=== PATIENT | male | born 1935 | race Caucasian/White ===

== ENCOUNTER 2019-11-12 10:02 | Inpatient (IN) | payer MEDICARE, MEDICAID ==
[~2019-11-12] VITALS: Ht 165.1 cm; Wt 102.3 kg
--- NOTE | ~2019-11-12 | OP ---
[address] [address] OPERATIVE REPORT Name: MITESH ASHBY Room: [address] IN .R.#: [id number] Admission: 11/12/19 Attend Phys: Bassam Schmid, Discharge: Date of : 37 Report #: [id number] THIS REPORT FOR: //name// cc: Praneeth Perez Ryan D. DO ~ CC: Praneeth Schmid DICTATED BY: Bc Bishop DO DATE OF SERVICE: 11/12/2019 PREOPERATIVE DIAGNOSIS: Right basicervical hip fracture. POSTOPERATIVE DIAGNOSIS: Right basicervical hip fracture. PROCEDURE: 1. Right cephalomedullary nailing of right hip fracture. 2. Physician-guided fluoroscopy, less than 1 hour. SURGEON: Shaila Gomez DO RADIO JOURNALIST: Bc Bishop DO; Hermes Deshpande DO ANESTHESIA: General. FLUIDS: Crystalloid. ESTIMATED BLOOD LOSS: 100 mL. DRAINS: None. SPECIMENS: None. COMPLICATIONS: None. CONDITION: Stable. DISPOSITION: PACU to [facility]. PREOPERATIVE ANTIBIOTICS: 2 grams of Ancef. INDICATIONS FOR PROCEDURE: The patient is an 84-year-old male who suffered a fall at home this morning, presented to the Emergency Department where imaging revealed a right basicervical femoral neck fracture. The patient was seen and nonoperative versus operative treatment options were discussed as well as risks, [address] [place] [address] OPERATIVE REPORT Name: MITESH ASHBY Oliva Room: [address] IN [facility].#: [id number] Admission: 11/12/19 Attend Phys: Bassam Schmid, Discharge: Date of : 36 Report #: [id number] complications and alternatives. The patient agreed to proceed with operative fixation after our recommendation. DESCRIPTION OF PROCEDURE: The patient was seen in preoperative area and the procedure and procedure site were verified and confirmed correct. The patient was transferred to the operating suite and placed in the supine position on operating table. He was given the benefit of general anesthesia. C-arm guidance was then used to perform closed reduction of the right hip fracture. Once adequate reduction was obtained, the right lower extremity was sterilely prepped and draped in the usual sterile fashion. Timeout was performed verifying the correct procedure, site, and patient identity, all parties agreed. Using C-arm guidance, appropriate starting point was found and incision was made. Sharp dissection was carried down through the IT band to the greater trochanter. A guidewire was placed in appropriate starting position and advanced to the lesser trochanter. Opening reamer was then passed down to the level of lesser trochanter. A 10 x 170 mm x 125 degree Krista gamma nail was then placed into the femur. Once it was in appropriate position, incision was made for placement of the lag screw. Dissection was carried down to bone with scalpel. A drill was then passed to the appropriate length for the lag screw. Then, reamer for the lag screw was passed followed by an appropriately sized lag screw, all confirmed to be in correct position with C-arm. Attention was then turned to the distal interlock screw, placed in each pedicle. Incision was made, sharp dissection was carried down to the level of the femur. A drill was used to drill bicortically through the femur. Measuring guide was used and then an appropriately sized distal interlock screw was placed. Final images were taken confirming the implant to be in appropriate position. Incisions were irrigated with sterile saline. IT band was closed with 0 Vicryl. Subcutaneous tissue was closed with 2-0 interrupted Vicryls. Skin was closed with kyung. Mepilex dressing was placed. The patient was transferred off the operating table and awoken from anesthesia without complication. He was transferred to PACU area for recovery. By: 1628 [id number] Gomez DO /jone
--- NOTE | ~2019-11-12 | EMS ---
[facility] [address] [place] [address] EMS Patient Care Report Name: MITESH ASHBY Room: [place] [address] ADM [place] ..#: [id number] Admission: 11/12/19 Attend Phys: Bassam Schmid, Discharge: Date of : 36 Report #: [id number] THIS REPORT FOR: //name// Report Transmitted: 11/12/2019 10:35 EMS Care Summary [facility] [place] Incident [id number] @ 11/12/2019 09:25 Incident Location [address] [place], [place] [id number] Patient MITESH ASHBY Male, 84 Years 1935 Patient Address [address] [place] [address] Patient History Hypertension (HTN), Patient Allergies No known allergies, Chief Complaint Pain-extremity lower Disposition Transported No Lights/[place] Dispatch Reason Falls Transported To [facility] Narrative Dispatched to address noted for a fall with a hip fracture. [facility] en route and on scene at time noted. Staff met us at the door and stated that the patient fell to the floor this morning. Patient had hip pain and they diagnosed a non displaced hip fracture on his right side with an x-ray today. Patient was in his recliner and stated pain with movement. Patient had no other injuries noted. Patient was able to transfer to stretcher and then was buckled in. [facility] [address] [place] [address] EMS Patient Care Report Name: MITESH ASHBY Room: [address] IN [facility]#: [id number] Admission: 11/12/19 Attend Phys: Bassam Schmid, Discharge: Date of : 36 Report #: [id number] Patient wanted to be transported to [facility] for care. Staff provided paperwork. Once in ambulance, vitals where taken. IV was attempted with no success and patient was stating pain with movement and palpation to right hip. Patient stated that he fell this morning while collecting dirty laundry off the floor. Patient denied a strike to the head, loss of consciousness or any blood thinner use. While en route, no major change was noted. Vitals taken again and radio report given. Arrived and took patient to room. Patient was moved to bed and RN was given verbal report. RN signed for patient and patient signed for self. END REPORT EMT-P Gurpreet Mcbride Initial Vitals @09:32Pain: 10/02, @09:50Pain: 10/02, @:50 @09:48P: 88,R: 14,BP: 153/75,Revised Trauma: 8, @09:55P: 90,R: 14,BP: 160/70,Revised Trauma: 8, @09:48GCS: 15, @09:55GCS: 15, @10:10 Assessments @09:32MENTAL:SKIN:HEENT:LUNG SOUNDS:ABDOMEN:PELVIS//GI:EXTREMITIES:PULSE:NEURO: Impression Pelvic and Perineal Pain Procedures @09:48 cc () Site: Hand-LeftResponse: UnchangedFailed@09:503-Lead ECGResponse: UnchangedSucceeded Timeline 09:25,Call Received 09:25,Dispatch Notified 09:,Psap Call 09:25,Dispatched 09:25,En Route 09:30,On Scene 09:32,At Patient 09:32,BP: / M,PULSE: ,RR: R,SPO2: Ox,ETCO2: ,BG: ,PAIN: 8,GCS: , 09:48, cc Site: Hand-Left,Response: UnchangedFailed, 09:48,BP: 153/75 M,PULSE: 88,RR: 14 R,SPO2: Ox,ETCO2: ,BG: ,PAIN: ,GCS: , 09:48,BP: / M,PULSE: ,RR: R,SPO2: Ox,ETCO2: ,BG: ,PAIN: ,GCS: 15, 09:50,Depart Scene 09:50,3-Lead ECG,Response: UnchangedSucceeded, 09:50,BP: / M,PULSE: ,RR: R,SPO2: Ox,ETCO2: ,BG: ,PAIN: 8,GCS: , [place] [address] EMS Patient Care Report Name: MITESH ASHBY Room: [place] [address] ADM [place] [facility]#: [id number] Admission: 11/12/19 Attend Phys: Bassam Schmid, Discharge: Date of : 36 Report #: [id number] 09:50,BP: / M,PULSE: ,RR: R,SPO2: Ox,ETCO2: ,BG: ,PAIN: ,GCS: , 09:55,BP: 160/70 M,PULSE: 90,RR: 14 R,SPO2: Ox,ETCO2: ,BG: ,PAIN: ,GCS: , 09:55,BP: / M,PULSE: ,RR: R,SPO2: Ox,ETCO2: ,BG: ,PAIN: ,GCS: 15, 09:59,At Destination 10:10,BP: / M,PULSE: ,RR: R,SPO2: Ox,ETCO2: ,BG: ,PAIN: ,GCS: , 10:13,Call Closed Disclaimer v1.1 Copyright 2020 [employer] This EMS Care Summary contains data elements from the applicable legal record (which may be displayed differently). It is designed to provide pertinent information for the following purposes: continuity of care, clinical quality, and state data reporting. The complete legal record is available to ED staff and administrators of the receiving hospital in [employer]'s Patient Tracker. All data is provided "as is."
[2019-11-12] MEDS ORDERED: MAPAP500 MG PO (10:08)
[2019-11-12] MEDS ORDERED: ASPERCREME1 EACH TOP (10:08)
[2019-11-12] MEDS ORDERED: PAIN RELIEF650 MG PO (10:08)
[2019-11-12] MEDS ORDERED: LIPITOR40 MG PO (10:09)
[2019-11-12] MEDS ORDERED: ZYRTEC 10 MG TA10 MG PO (10:09)
[2019-11-12] MEDS ORDERED: VITAMIN D3100 MCG PO (10:09)
[2019-11-12] MEDS ORDERED: FLOMAX0.4 MG PO (10:10)
[2019-11-12] MEDS ORDERED: FISH OIL 1,0001 EAC9 PO (10:10)
[2019-11-12] MEDS ORDERED: COLACE100 MG PO (10:10)
[2019-11-12] MEDS ORDERED: FERROUS SULFAT325 MG PO (10:10)
[2019-11-12] MEDS ORDERED: FUROSEMIDE 40 M40 MG PO (10:11)
[2019-11-12] MEDS ORDERED: FLONASE 0.05%50 MCG NARES (10:11)
[2019-11-12] MEDS ORDERED: NEURONTIN800 MG PO (10:11)
[2019-11-12] MEDS ORDERED: MAALOX MAXIMUM355 ML PO (10:12)
[2019-11-12] MEDS ORDERED: HUMALOG100 UNIT/1 SUBQ (10:12)
[2019-11-12] MEDS ORDERED: LANTUS SUBQ (10:12)
[2019-11-12] MEDS ORDERED: TOPROL XL50 MG (10:13)
[2019-11-12] MEDS ORDERED: METOLAZONE 2.52.5 M1 PO (10:13)
[2019-11-12] MEDS ORDERED: MIRALAX119 GM PO (10:13)
[2019-11-12] MEDS ORDERED: METFORMIN HCL500 M3 PO (10:13)
[2019-11-12 10:14] VITALS: BP 152/77
[2019-11-12] MEDS ORDERED: OMEPRAZOLE 20 M20 M1 PO (10:14)
[2019-11-12] MEDS ORDERED: NYSTATIN1000000 UN TOP (10:14)
[2019-11-12] MEDS ORDERED: ZOFRAN4 MG PO (10:15)
[2019-11-12] MEDS ORDERED: VENTOLIN HFA 1818 GM INH (10:15)
[2019-11-12] MEDS ORDERED: TRAMADOL 50 MG50 MG PO (10:15)
[2019-11-12] MEDS ORDERED: PROMETHEGAN25 MG RECTAL (10:15)
[2019-11-12 10:28] LABS: ABSOLUTE EOSINOPHILS 0.1 thou/uL (0.0-0.7); ABSOLUTE LYMPHOCYTES 2.9 thou/uL (0.8-5.3); ABSOLUTE NEUTROPHILS 10.2 thou/uL (1.6-8.1); BASOPHILS 0.2 %; EOSINOPHILS 0.8 %; HEMATOCRIT 40.9 % (42.0-52.0); HEMOGLOBIN 13.9 gm/dL (14.0-18.0); LYMPHOCYTES 20.5 %; MCH 30.9 pg (26.0-34.0); MCHC 33.9 g/dL (28.0-37.0); MCV 91.1 fL (80.0-100.0); MONOCYTES 7.2 %; MPV 9.4 fl. (7.2-11.1); NUCLEATED RBCS 0 /100WBC; PLATELET COUNT* 197 thou/uL (150-400); POLYS 71.3 %; RBC 4.49 mil/uL (4.50-6.00); RDW-CV 17.6 % (10.5-14.5); WBC 14.3 thou/uL (4.0-11.0)
[2019-11-12 10:39] LABS: CALCIUM 9.1 mg/dL (8.5-10.1); CREATININE 1.5 mg/dL (0.6-1.3); POTASSIUM 3.7 mmol/L (3.5-5.1)
[2019-11-12 10:43] LABS: URINE BILIRUBIN NEGATIVE (Negative); URINE BLOOD 2+ (Negative); URINE CLARITY SL CLOUDY; URINE COLOR STRAW; URINE GLUCOSE-RANDOM NEGATIVE (Negative); URINE KETONES NEGATIVE (Negative); URINE LEUKOCYTES-REFLEX 1+ (Negative); URINE PROTEIN NEGATIVE (Negative); URINE UROBILINOGEN 0.2 E.U./dl (0.2-1.0)
[2019-11-12 10:44] LABS: ALBUMIN 3.4 g/dL (3.4-5.0); INR 1.1; PROTIME 11.4 Seconds (9.20-11.50); TOTAL BILIRUBIN 0.4 mg/dL (<0.1-1.0); TOTAL PROTEIN 8.3 g/dL (6.4-8.2)
[2019-11-12 10:44] LABS: URINE NITRITE-REFLEX POSITIVE (Negative)
[2019-11-12 10:49] LABS: SQUAMOUS 0-3 Few /LPF (0-3); URINE WBC-REFLEX >25 Many /HPF (0-5); WBC CLUMPS Few (None Seen)
[2019-11-12 10:50] LABS: BACTERIA-REFLEX >30 Many /HPF (None Seen); CASTS None Seen /LPF (None Seen); CRYSTALS None Seen /LPF (None Seen); MUCUS None Seen strn/LPF (None Seen); URINE RBC 0-2 Rare /HPF (0-2)
[2019-11-12 14:36] VITALS: BP 127/38
[2019-11-12 18:15] VITALS: BP 123/44
--- NOTE | 2019-11-12 18:36 | NUR ---
PT NOTED TO HAVE ARRIVED TO ROOM VIA BED AT 1800, POST ORIF OR RIGHT HIP; REPORT RECEIVED AT BED SIDE- ENGINE LATHE TENDER PLACED ORDERED, TRACING SR/ST- IV NOTED TO LEFT FA INTACT AND SL- VS NOTED AT 97.6 20 123/44 100 92-94% ON 4L, CAP NO IN PLACE ORDERED- DRESSING NOTED TO RIGHT HIP WITH PIN POINT DRAINAGE NOTED, ICE IN PLACE FOR COMFORT- PT NOTED TO BE A&O X3, BUT DROWSY- FRANCOIS IN PLACE D/D CLEAR YELLOW URINE- PT SET ARRANGED IN BED, CALL LIGHT AND PERSONAL BELONGINGS WITH IN REACH- REPORT TO BE GIVEN TO NIGHT NURSE TO CONTINUE CARES- ALL NEEDS MET AT THIS TIME-WCTM
[2019-11-12 20:00] VITALS: BP 151/61
[2019-11-13] VITALS: BP 130/50
[2019-11-13 04:00] VITALS: BP 139/59
[2019-11-13 05:25] LABS: HEMATOCRIT 33.7 % (42.0-52.0); MCH 31.5 pg (26.0-34.0); MCHC 34.3 g/dL (28.0-37.0); RBC 3.66 mil/uL (4.50-6.00); WBC 10.9 thou/uL (4.0-11.0)
[2019-11-13 05:38] LABS: ALBUMIN 2.9 g/dL (3.4-5.0); CALCIUM 8.4 mg/dL (8.5-10.1); CREATININE 1.6 mg/dL (0.6-1.3); MAGNESIUM 1.7 mg/dL (1.8-2.4); POTASSIUM 4.3 mmol/L (3.5-5.1); TOTAL BILIRUBIN 0.3 mg/dL (<0.1-1.0); TOTAL PROTEIN 7.4 g/dL (6.4-8.2)
[2019-11-13 05:40] LABS: HEMOGLOBIN 11.5 gm/dL (14.0-18.0)
[2019-11-13 07:42] VITALS: BP 127/58
--- NOTE | 2019-11-13 09:31 | NUR ---
ASSUMED CARE OF PT THIS AM AROUND 0715- SERVICING REP IN PLACE ORDERED, TRACING SR WITH 1ST DEGREE- UPON ASSESSMENT PT NOTED TO BE RESTING IN BED- PT A&O X4- FRANCOIS IN PLACE D/D YELLOW URINE- Q2 HOUR TURNS IN PLACE INDICATED- LCTA/DIMINISHED IN BASES- VSS, O2 SAT 94% ON 3L VIA NC THIS AM, CAPNO IN PLACE ORDERED- ABD SOFT/ROUND/OBESE, BS X4 QUADS- LAST BM REPORTED X4 DAYS AGO, SCHEDULED MIRALAX GIVEN THIS AM ORDERED- IV NOTED TO LEFT FA INTACT, IV ABT GIVEN THIS AM PRESCRIBED- SET UP ASSIST REQUIRED WITH MEALS, GOOD PO INTAKE NOTED THIS AM- BS MONITORED ORDERED, INSULIN PRESCRIBED- RIGHT HIP DRESSING NOTED WITH SCANT DRAINGE, INTACT- SCD'S IN PLACE INDICATED- PRN OXY THIS AM AT 0902 R/T C/O RIGHT HIP PAIN- CALL LIGHT AND PERSONAL BELONGINGS WITH IN REACH- HOURLY ROUNDS IN PLACE R/T SAFETY/NEEDS- ALL NEEDS MET AT THIS TIME-WCTM
--- NOTE | 2019-11-13 10:58 | EKG ---
[place] [address] ELECTROCARDIOGRAM REPORT Name: MITESH ASHBY Room: [address] IN [facility].#: [id number] Admission: 11/12/19 Attend Phys: Bassam Rdz Discharge: Date of : 37 Date of Service: 11/12/19 1040 Report #: [id number] THIS REPORT FOR: //name// [facility] ED Test Date: 2019-11-12 Test Time: 10:40:13 Pat Name: MITESH ASHBY Department: Room: [facility] Gender: M Lacing Cutter: TURNER : 1935 Requested By: Geraldo Johnson Order Number: [id number] MD: Juan Gusman Measurements Intervals [place] Rate: 83 P: 51 OR: 166 QRS: 49 QRSD: 94 T: 50 QT: 382 QTc: 449 Interpretive Statements Sinus rhythm No previous ECG available for comparison Electronically Signed On 11-13-2019 10:58:13 CDT by Juan Gusman [email or web address] <ELECTRONICALLY SIGNED> By: Juan Gusman MD, [facility] 11/13/19 1058 1040 1040 Juan Gusman MD, FACC /EPI
[2019-11-13 12:31] VITALS: BP 153/78
[2019-11-13 16:16] VITALS: BP 123/43
[2019-11-13 20:00] VITALS: BP 141/60
[2019-11-14] VITALS: BP 129/41
[2019-11-14 04:00] VITALS: BP 110/47
[2019-11-14 05:02] LABS: HEMATOCRIT 28.4 % (42.0-52.0); MCH 32.3 pg (26.0-34.0); MCHC 35.2 g/dL (28.0-37.0); MCV 91.8 fL (80.0-100.0); MPV 9.8 fl. (7.2-11.1); RBC 3.09 mil/uL (4.50-6.00); RDW-CV 17.1 % (10.5-14.5); WBC 10.3 thou/uL (4.0-11.0)
[2019-11-14 05:11] LABS: CALCIUM 8.6 mg/dL (8.5-10.1); CREATININE 1.8 mg/dL (0.6-1.3); POTASSIUM 3.7 mmol/L (3.5-5.1)
[2019-11-14 07:43] VITALS: BP 117/40
--- NOTE | 2019-11-14 09:09 | NUR ---
ASSUMED CARE OF PT THIS AM AROUND 07- LEGAL PROJECT MANAGER IN PLACE ORDERED, TRACING SR- UPON ASSESSMENT PT NOTED TO BE RESTING IN BED- PT A&O X4- CONT OF BOWEL, FRANCOIS IN PLACE D/D CLEAR YELLOW URINE- Q2 HOUR TURNS IN PLACE INDICATED- RUL WHEEZING NOTED WITH WET NON-PRODUCTIVE COUGH R/T POOR EFFORT- VSS, O2 SAT 94% ON 3L VIA NC- ABD SOFT/OBESE/NON-TENDER, BS X4 QUADS- IV NOTED TO RIGHT FA INTACT AND SL, IV ABT GIVEN THIS AM WITH BREAKFAST- SET UP ASSIST REQUIRED WITH MEALS, GOOD PO INTAKE NOTED- BS MONITORED ORDERED WITH INSULIN GIVEN PRESCRIBED- RIGHT HIP DRESSING INTACT WITH NO NEW DRAINGE NOTED, ICE PACK TO SIGHT FOR COMFORT- ABD PILLOW IN PLACE INDICATED- CALL LIGHT AND PERSONAL BELONGINGS WITH IN REACH- HOURLY ROUNDS IN PLACE R/T SAFETY/NEEDS- ALL NEEDS MET AT THIS TIME-WCTM
[2019-11-14] MEDS ORDERED: OXYCODONE HCL 55 MG PO (09:51)
[2019-11-14] MEDS ORDERED: ELIQUIS5 MG PO (09:51)
[2019-11-14] MEDS ORDERED: MAPAP500 MG PO (09:51)
[2019-11-14] MEDS ORDERED: KEFLEX500 M1 PO (09:51)
--- NOTE | 2019-11-14 13:38 | NUR ---
CM SPOKE TO THE PT TO DISCUSS HIS HOME SITUATION, DISCHARGE PLANNING, AND TO INFORM OF THE ROLE OF CM. PT INFORMS THAT HE RESIDES AT [facility] AND NORMALLY 'GETS AROUND OK'. PT USES A WALKER OR CANE FOR MOBILITY. CM SPOKE TO YOUNG WITH [facility] ADMISSIONS AND SAADIA CONFIRMS THAT THE PT RESIDES AT IN LTC, AND THAT THE FACILITY IS ABLE TO ACCEPT THE PT TO THE SKILLED UNIT AT D/C IF NEEDED. CM TO FAX SNF REFERRAL WHEN PT/OT NOTES ARE AVAILABLE. CM ATTEMPTED TO CONTACT PT'S SON SINA TO DISCUSS DISCHARGE PLANNING. NO ANSWER. CM LEFT VOICEMAIL FOR SINA TO RETURN CALL TO CM. CM WILL REMAIN AVAILABLE TO ASSIST AND FOLLOW NEEDED. [facility] PHONE: [phone] FAX: [phone]
[2019-11-14 20:00] VITALS: BP 137/51
[2019-11-15 00:30] VITALS: BP 138/38
[2019-11-15 04:30] VITALS: BP 157/50
[2019-11-15 08:00] VITALS: BP 106/55
[2019-11-15 13:40] VITALS: BP 154/45
[2019-11-15 15:59] VITALS: BP 121/35
--- NOTE | 2019-11-15 19:00 | NUR ---
PATIENT RESTING IN BED. UP WITH ASSIST X2 MAX. FORGERTFUL AT TIMES.
[2019-11-15 20:00] VITALS: BP 135/56
[2019-11-16] VITALS (7 sets, daily range): BP systolic 100–147; BP diastolic 30–59
--- NOTE | 2019-11-16 12:05 | NUR ---
ASSUMED CARE OF PATIENT THIS AM AT 0730. PATIENT IS ALERT AND ORIENTED X 4. HE C/O SEVERE PAIN TO HIS RIGHT HIP. TELE SHOWS NSR. PATIENT REPOSITIONED AND MEDICATED FOR PAIN. PATIENT TAKEN TO RADIOLOGY PER BED FOR KUB AND RETURNED. PT IN TO SEE PATIENT AND THEY PLACED HIM UP IN THE CHAIR. PATIENT C/O PAIN RETURNING WITH ACTIVITY. PATIENT REMEDICATED X 1. O2 TITRATED BACK DOWN TO 3 LITERS. SURGICAL SITE DRESSING IS INTACT. WILL CONTINUE TO MONITOR.
[2019-11-16 14:23] LABS: ABSOLUTE EOSINOPHILS 0.2 thou/uL (0.0-0.7); ABSOLUTE LYMPHOCYTES 2.2 thou/uL (0.8-5.3); ABSOLUTE MONOCYTES 0.6 thou/uL (0.0-1.2); BASOPHILS 0.3 %; EOSINOPHILS 1.6 %; HEMATOCRIT 32.2 % (42.0-52.0); LYMPHOCYTES 21.8 %; MCH 31.1 pg (26.0-34.0); MCV 91.5 fL (80.0-100.0); MONOCYTES 6.2 %; MPV 10.3 fl. (7.2-11.1); NUCLEATED RBCS 0 /100WBC; PLATELET COUNT* 212 thou/uL (150-400); POLYS 70.1 %; RBC 3.52 mil/uL (4.50-6.00); RDW-CV 16.5 % (10.5-14.5)
[2019-11-17 00:22] VITALS: BP 126/39
[2019-11-17 04:42] VITALS: BP 146/49
--- NOTE | 2019-11-17 07:17 | NUR ---
APPROX 0130 PT DISCONTINUE FRANCOIS, NEW FRANCOIS PLACE. NO ISSUES WITH FRANCOIS SINCE REINSERTION.
[2019-11-17 08:15] VITALS: BP 138/57
[2019-11-17 11:29] VITALS: BP 163/50
[2019-11-17 13:08] LABS: HEMATOCRIT 30.1 % (42.0-52.0); HEMOGLOBIN 10.5 gm/dL (14.0-18.0); MCH 31.4 pg (26.0-34.0); MCHC 34.7 g/dL (28.0-37.0); MCV 90.5 fL (80.0-100.0); MPV 9.6 fl. (7.2-11.1); RBC 3.33 mil/uL (4.50-6.00); RDW-CV 16.6 % (10.5-14.5); WBC 9.2 thou/uL (4.0-11.0)
[2019-11-17 13:15] LABS: CALCIUM 9.1 mg/dL (8.5-10.1); CREATININE 1.2 mg/dL (0.6-1.3); POTASSIUM 3.9 mmol/L (3.5-5.1)
--- NOTE | 2019-11-17 16:13 | NUR ---
CM INFORMED THAT PT READY TO D/C TODAY BACK TO [facility] SKILLED LEVEL OF CARE. CM SPOKE TO YOUNG WITH ADMISSIONS AT TO INFORM OF THE PT'S RETURN AND FAXED PT'S CLINICAL INFO AND D/C ORDERS. YOUNG ARRANGED [facility] FOR 1530. CM INFORMED RN IN-CHARGE OF THE PT OF THE PT'S TIME OF TX AND WHERE TO CALL REPORT. RN IN AGREEMENT. CM WILL REMAIN AVAILABLE TO ASSIST AND FOLLOW NEEDED. [facility] PHONE: [phone] FAX: [phone]
--- NOTE | 2019-11-17 20:03 | NUR ---
AT 1341 REPORT CALLED TO [facility] ALMAR[facility]. SPOKE WITH FREDRICK CESAR. REVIEWED PATIENT REASON FOR ADMISSION, AM NURSING ASSESSMENT, VITAL SIGNS, APPREARANCE OF SURGICAL SIGHT RIGHT HIP. THE SITE HAS INTACT STAPLE LINE, NO DRAINAGE AND CLEAN ISLAND DRESSINGS X 2 APPLIED. DISCUSSED NEED FOR FOLLOW UP APPOINTMENT WITH ORTHOPEDIC SURGEON DR AMELIA MCKEON BY November. THIS INFORMATION WAS PROVIDED TO ME BY DR MCKEON'S OFFICE STAFF (YAZMIN). FRANCOIS CATHETER WAS LEFT INTACT BASED ON VERBAL ORDER FROM DR MARTIN. i ALSO REVIEWED BLOOD SUGAR RANGE THIS SHIFT WHICH HAS BEEN [phone] WITH USE OF SCHEDULED AND SLIDING SCALE INSULIN. AT 1625 WHEELCHAIR VAN ARRIVED. PT REQUIRED 3 PERSON HEAVY ASSIST PLUS USE OF GAIT BELT TO TRANSFER TO . TRANSPORTATION STAFF PROVIDED WITH PACKET OF PAPERWORK FOR SNF FACILITY. AT TIME OF DISCHARGE PT REMAINED ALERT, ORIENTED AND COOPERATIVE. NO C/O PAIN OR DISTRESS. IV WAS DISCONTINUED PRIOR TO DISCHARGE.
== END 2019-11-17 16:23 | DRG 480 ==
LOC: M.ERS 10:02 → M.SUR 10:02 → M.ERS 11:20 → M.TBA-ER 11:20 → M.2W 15:38 → M.TBA-ER 15:38 → M.2W 18:12
PROVIDERS: Emergency Medicine Emergency Medical Services; Internal Medicine; ADMIT Family Medicine; ATTEND Family Medicine
PROC: 0QS604Z Reposition Right Upper Femur with Internal Fixation Device, Open Approach (ICD-10-PCS; principal; 2019-11-12)
DX: S72.121A Displaced fracture of lesser trochanter of right femur, initial encounter for closed fracture (principal); G93.41 Metabolic encephalopathy; J18.9 Pneumonia, unspecified organism; R65.10 Systemic inflammatory response syndrome (SIRS) of non-infectious origin without acute organ dysfunction; N18.4 Chronic kidney disease, stage 4 (severe); N39.0 Urinary tract infection, site not specified; Z20.828 Contact with and (suspected) exposure to other viral communicable diseases; E11.22 Type 2 diabetes mellitus with diabetic chronic kidney disease; J43.9 Emphysema, unspecified; E11.40 Type 2 diabetes mellitus with diabetic neuropathy, unspecified; E78.5 Hyperlipidemia, unspecified; K21.9 Gastro-esophageal reflux disease without esophagitis; E66.01 Morbid (severe) obesity due to excess calories; K59.00 Constipation, unspecified; Z88.6 Allergy status to analgesic agent; Z91.041 Radiographic dye allergy status; Z79.899 Other long term (current) drug therapy; W18.39XA Other fall on same level, initial encounter; Y93.89 Activity, other specified; Y92.89 Other specified places as the place of occurrence of the external cause; Y99.8 Other external cause status